=== PATIENT | female | born 1995 | race Two or more races ===

== ENCOUNTER 2019-03-03 13:56 | Emergency (ER) | payer OTHER ==
[~2019-03-03] VITALS: Ht 160 cm; Wt 59.0 kg
[~2019-03-03 13:56] MED LIST: AMOX1TAB12 PO; IBUPROFEN800 MG PO; INTESTINEX680 MG PO; TRAMADOL HCL-AP1 TAB PO
== END 2019-03-03 17:38 | disposition home or self-care (01) ==
LOC: ER 13:56
DX: H10.13 Acute atopic conjunctivitis, bilateral (principal)

== ENCOUNTER 2019-10-27 10:01 | Emergency (ER) | payer OTHER ==
[~2019-10-27] VITALS: Ht 160 cm; Wt 63.5 kg
== END 2019-10-27 12:44 | disposition home or self-care (01) ==
LOC: ER 10:01
DX: J11.1 Influenza due to unidentified influenza virus with other respiratory manifestations (principal); B96.0 Mycoplasma pneumoniae [M. pneumoniae] as the cause of diseases classified elsewhere

== ENCOUNTER 2021-06-03 19:15 | Emergency (ER) | payer OTHER ==
[~2021-06-03] VITALS: Ht 160 cm; Wt 63.5 kg
[2021-06-03] MEDS ORDERED: NORFLEX100MG PO (22:15)
[2021-06-03] MEDS ORDERED: NAPROXEN500 MG PO (22:15)
== END 2021-06-03 22:40 | disposition home or self-care (01) ==
LOC: ER 19:15
DX: R07.89 Other chest pain (principal); R51.9 Headache, unspecified

== ENCOUNTER 2021-12-31 00:31 | Emergency (ER) | payer OTHER ==
[~2021-12-31] VITALS: Ht 160 cm; Wt 66.7 kg
[~2021-12-31 00:31] MED LIST changes: +NAPROXEN500 MG PO; +NORFLEX100MG PO
== END 2021-12-31 03:11 | disposition home or self-care (01) ==
LOC: ER 00:31
DX: B34.9 Viral infection, unspecified (principal); Z20.822 Contact with and (suspected) exposure to COVID-19

== ENCOUNTER 2022-05-07 17:03 | Emergency (ER) | payer OTHER ==
[~2022-05-07] VITALS: Ht 160 cm; Wt 63.5 kg
[2022-05-07] MEDS ORDERED: MEDROLPACK PO (21:44)
[2022-05-07] MEDS ORDERED: ZITHROMAX500 MG PO (21:44)
[2022-05-07] MEDS ORDERED: TUSSI PRES-B L480 ML PO (21:45)
== END 2022-05-07 22:05 | disposition home or self-care (01) ==
LOC: ER 17:03
DX: U07.1 COVID-19 (principal); J06.9 Acute upper respiratory infection, unspecified

== ENCOUNTER 2024-12-07 17:07 | Emergency (ER) | payer OTHER ==
[~2024-12-07] VITALS: Ht 160 cm; Wt 64.9 kg
[~2024-12-07 17:07] MED LIST changes: +MEDROLPACK PO; +TUSSI PRES-B L480 ML PO; +ZITHROMAX500 MG PO
[2024-12-07] MEDS ORDERED: SYNTHROID50 MCG (17:17)
== END 2024-12-07 20:42 | disposition home or self-care (01) ==
LOC: ER 17:10
DX: J06.9 Acute upper respiratory infection, unspecified (principal); Z20.822 Contact with and (suspected) exposure to COVID-19

== ENCOUNTER 2025-05-27 22:18 | Emergency (ER) | payer OTHER ==
[~2025-05-27] VITALS: Ht 160 cm; Wt 77.1 kg
[~2025-05-27 22:18] MED LIST changes: +SYNTHROID50 MCG
[2025-05-28] MEDS ORDERED: ACETAMINOPHEN 500 MG GEL..CAP PO ONE (01:00)
[2025-05-28] MEDS ORDERED: TETANUS & DIPHTHERIA TOX,ADULT 0.5 ML VIAL IM ONE (01:00)
[2025-05-28] MEDS ORDERED: DUI500 PO (02:42)
== END 2025-05-28 02:45 | disposition home or self-care (01) ==
LOC: ER 22:18
DX: S61.213A Laceration without foreign body of left middle finger without damage to nail, initial encounter (principal); W25.XXXA Contact with sharp glass, initial encounter; Y93.89 Activity, other specified; Y92.89 Other specified places as the place of occurrence of the external cause; Y99.9 Unspecified external cause status

== ENCOUNTER 2025-06-07 11:45 | Emergency (ER) | payer OTHER ==
[~2025-06-07] VITALS: Ht 160 cm; Wt 64.4 kg
[~2025-06-07 11:45] MED LIST changes: +DUI500 PO
[2025-06-07 12:27] VITALS: BP 97/75; O2SAT 99
== END 2025-06-07 13:59 | disposition home or self-care (01) ==
LOC: ER 11:45
DX: Z48.02 Encounter for removal of sutures (principal)